=== PATIENT | male | born 1995 | race Caucasian/White ===

== ENCOUNTER 2019-10-28 10:18 | Emergency (ER) | payer SELFPAY ==
[~2019-10-28] VITALS: Ht 185.4 cm; Wt 108.0 kg
[~2019-10-28 10:18] MED LIST: CYCL-1 PO; NAPR-1154 PO; [UNRECOGNIZED DRUG - CODE] NAS
[2019-10-28] MEDS ORDERED: ketorolac tromethamine 15mg/ml inj. IM ONE (11:20)
[2019-10-28] MEDS ORDERED: CYCL-1 PO (11:32)
[2019-10-28 12:02] VITALS: BP 123/85
== END 2019-10-28 12:03 | disposition home or self-care (01) ==
LOC: ER 10:18
DX: M54.5 Low back pain (principal); G89.29 Other chronic pain; J45.909 Unspecified asthma, uncomplicated; F12.90 Cannabis use, unspecified, uncomplicated; Z79.899 Other long term (current) drug therapy
CPT/HCPCS: 96372; 99283; J1885

== ENCOUNTER 2022-07-15 00:17 | Emergency (ER) | payer OTHER ==
[~2022-07-15] VITALS: Ht 188 cm; Wt 86.2 kg
[2022-07-15 00:52] VITALS: BP 139/81
[2022-07-15] MEDS ORDERED: ACYC-128 PO (01:24)
== END 2022-07-15 01:38 | disposition home or self-care (01) ==
LOC: ER 00:18
DX: B00.9 Herpesviral infection, unspecified (principal); J45.909 Unspecified asthma, uncomplicated; F12.10 Cannabis abuse, uncomplicated; Z79.899 Other long term (current) drug therapy
CPT/HCPCS: 36415; 87491; 99283

== ENCOUNTER 2024-10-16 17:51 | Emergency (ER) | payer BC, OTHER ==
[~2024-10-16] VITALS: Ht 185.4 cm; Wt 100.9 kg
[2024-10-16 17:54] VITALS: BP 131/90; PULSE 78; RESP 18; TEMP 97.9; O2SAT 100
[2024-10-16 18:17] LABS: LEUKOCYTE ESTERASE ,URINE NEGATIVE (Neg); NITRITES, URINE NEGATIVE (Neg); OCCULT BLOOD,URINE MODERATE (Neg)
[2024-10-16 18:35] LABS: UA COLLECTION TYPE CLN CATCH MIDSTREAM
[2024-10-16 18:36] LABS: AMORPHOUS PHOSPHATES 4+; SQUAMOUS EPITHELIAL CELL,UR FEW /LPF (FEW)
[2024-10-16 18:48] LABS: MEAN PLATELET VOLUME 8.9 FL (7.4-10.4); RED CELL DISTRIBUTION WIDTH 13.0 % (11.5-14.5)
--- NOTE | 2024-10-16 19:09 | RADIOLOGY REPORT ---
ULTRASOUND SCROTUM CLINICAL INDICATION: Right Testicle Pain TECHNIQUE: High resolution scrotal ultrasound was performed with a linear transducer with duplex dopp ler and tour sales representative images acquired. Color Doppler with spectral analysis was performed/attempted of the testes. COMPARISON: None FINDINGS: Right testicle: Normal in size, measuring 5.2 x 3.2 x 4.7 cm. The testicular parenchyma is homogeneou s. No testicular mass. Normal intratesticular blood flow. The right epididymis appears normal. Small right hydrocele. Left testicle: Normal in size, measuring 4.5 x 2.6 x 5.1 cm. The testicular parenchyma is homogeneous . No testicular mass. Normal intratesticular blood flow. The left epididymis appears normal. IMPRESSION: 1. No evidence of testicular torsion. 2. Small right hydrocele.
[2024-10-16 19:10] LABS: TOTAL CARBON DIOXIDE 27.7 MMOL/L (24-32)
[2024-10-16 19:34] LABS: CREATININE 1.11 MG/DL (0.60-1.10); eCRCL 111 ML/MIN; eGFR 78 ML/MIN
--- NOTE | 2024-10-16 19:59 | Physician Documentation ---
History of Present Illness ~ Chief Complaint: Testicular Pain Stated Complaint: GROIN PAIN Time Seen by MD: 18:50 Primary Medical Doctor: none HPI This is a 29-year-old male who presents with right testicular pain radiating to lower abdomen and right lower back, reports that he had trauma to the testicle one-week prior received an ultrasound of the testicle and was told he had a contusion to the testicle, patient reports that today the pain became worse. Patient additionally reports a feeling of abdominal discomfort that he describes as it feels like I have diarrhea but can not poop patient additionally reports pain after urination which she describes as similar to when he had a kidney stone. Medication Reconciliation Allergies: Coded Allergies: No Known Allergies (Unverified , 10/16/24) Scheduled Cyclobenzaprine* (Cyclobenzaprine*), 1 TAB PO Q8H Naproxen (Naprosyn), 1 TAB PO Q12H Tamsulosin Hcl* (Flomax*), 1 CAP PO DAILY Scheduled PRN Cyclobenzaprine* (Cyclobenzaprine*), 1 TAB PO TID PRN for pain [Neti-Pot], 1 EA OSVALDO BID PRN for nasal congestion Past Medical History Past Medical History: Asthma Past Surgical History: no surgical history Alcohol Use: None Drug Use: marijuana Occupation: employed Review of Systems ROS As stated above in the HPI, otherwise all systems are reviewed and negative. Physical Exam Vital Signs: Temperature: 97.9, Source: Temporal, Heart Rate: 78, Respiratory Rate: 18, BP: 131/90, Pulse Oximetry: 100, Weight: 100.910 Oxygen Flow Rate: 0 Physical Exam VITALS: Reviewed and as above. GENERAL: Alert, nontoxic appearing, no apparent distress. RESPIRATORY: No increased work of breathing, no respiratory distress, speaking in full clear sentences, clear lung sounds in all mallory CV: Regular rate and rhythm no murmur BACK: No CVA tenderness GI: Lower abdomen tender to palpation, nondistended, soft, no rebound, no guarding : Right testicle tender to palpation, no scrotal ecchymosis or erythema Progress Results/Orders Results/Orders Orders - KRISTI DE LOS SANTOS Us Testic/W/Duplex (10/16/24 18:23) Completed Orders - KRISTI DE LOS SANTOS Us Testic/W/Duplex (10/16/24 18:23) Vital Signs 10/16/24 17:54 Temp 97.9 Pulse 78 Resp 18 B/P (MAP) 131/90 Pulse Ox 100 O2 Flow Rate 0 Laboratory Tests Test 10/16/24 17:58 10/16/24 18:24 Urine Specimen Description Cln catch midstream Urine Color Yellow Urine Clarity Cloudy Urine pH 7.0 Urine Specific Lipan 1.020 Urine Protein Negative Urine Glucose (UA) Negative Urine Ketones Negative Urine Occult Blood Moderate H Urine Nitrite Negative Urine Bilirubin Negative Urine Urobilinogen 0.2 Urine Leukocyte Esterase Negative Urine RBC 20-50 Urine WBC 0-4 Urine Squamous Epithelial Cells Few Urine Amorphous Phosphates 4+ Urine Bacteria 2+ Urine Culture Indicated Not ind Volume Urine Centrifuged 10 ml Urine Comment White Blood Count 9.9 Red Blood Count 5.08 Hemoglobin 15.3 Hematocrit 44.5 Mean Corpuscular Volume 87.7 Mean Corpuscular Hemoglobin 30.1 Mean Corpuscular Hemoglobin Concent 34.3 Red Cell Distribution Width 13.0 Platelet Count 226 Mean Platelet Volume 8.9 Neutrophils (%) (Auto) 53.5 Lymphocytes (%) (Auto) 34.6 Monocytes (%) (Auto) 6.8 Eosinophils (%) (Auto) 4.5 Basophils (%) (Auto) 0.6 Neutrophils # (Auto) 5.3 Lymphocytes # (Auto) 3.4 Monocytes # (Auto) 0.7 Eosinophils # (Auto) 0.4 Basophils # (Auto) 0.1 CBC Comment Sodium Level 140 Potassium Level 3.5 Chloride Level 104 Carbon Dioxide Level 27.7 Anion Gap 8 Blood Urea Nitrogen 12 Creatinine 1.11 H Estimated GFR/1.73 m2 78 BUN/Creatinine Ratio 10.8 Glucose Level 89 Calcium Level 8.9 Total Bilirubin 0.5 Aspartate Amino Transf (AST/SGOT) 22 Alanine Aminotransferase (ALT/SGPT) 32 Alkaline Phosphatase 60 Total Protein 7.7 Albumin 4.1 Globulin 3.6 Albumin/Globulin Ratio 1.1 Lipase 55 Chemistry Comments EKG/XRAY/CT/US/VASC/MRI Ultrasound : Impression Exam: US TESTIC/W/DUPLEX ULTRASOUND SCROTUM CLINICAL INDICATION: Right Testicle Pain TECHNIQUE: High resolution scrotal ultrasound was performed with a linear transducer with duplex doppler and traffic workforce representative images acquired. Color Doppler with spectral analysis was performed/attempted of the testes. COMPARISON: None FINDINGS: Right testicle: Normal in size, measuring 5.2 x 3.2 x 4.7 cm. The testicular parenchyma is homogeneous. No testicular mass. Normal intratesticular blood fl ow. The right epididymis appears normal. Small right hydrocele. Left testicle: Normal in size, measuring 4.5 x 2.6 x 5.1 cm. The testicular parenchyma is homogeneous. No testicular mass. Normal intratesticular blood flow. The left epididymis appears normal. IMPRESSION: 1. No evidence of testicular torsion. 2. Small right hydrocele. Electronically Signed by:SHERLY GOODRICH MD Date & Time: 10/16/241906 Dictated by: SHERLY GOODRICH MD Dictation date and time: 10/16/241906 Medical Decision Making Findings This 29 year old male presented with right testicular pain with radiation to lower abdomen and low back. Physical exam significant for testicular tenderness without swelling or ecchymosis. Ultrasound did not demonstrate evidence of testicular torsion though there was evidence of a hydrocele which is most likely the source of patients testicular pain. Physical exam was otherwise benign without abdominal pain or other findings. There was evidence of hematuria on UA though no evidence of urinary tract infection, given patient's report of symptoms similar to previous kidney stone this likely evidence of patient passing kidney stone, with shared decision making imaging will be deferred and patient discharged on tamsilosin to follow up with PCP. Patient declines testing and treatment for possible STI as he reports in a monogamous relationship. Patient is otherwise well appearing and is appropriate for outpatient follow up. Patient provided home care instructions, follow up instructions, and return to care precautions. Urinary Diff Dx:Considerations: Include: Appendicitis, Bowel obstruction, Musculoskeletal pain, Pyelonephritis, Urolithiasis, Urinary Obstruction, Urethritis, Urinary retention, UTI Genital Diff Dx:Considerations: Include: Epididymitis, Foreign body, Hydrocele, Inguinal hernia, Prostatitis, Testicular torsion Departure Time of Disposition: 20:41 Disposition: 01 HOME / SELF CARE / HOMELESS Impression: Primary Impression: Pain in testicle Qualified Codes: N50.811 - Right testicular pain Additional Impression: Hematuria Qualified Codes: R31.9 - Hematuria, unspecified Condition: Improved Discharge Instructions: Hydrocele, Adult Additional Instructions: Your ultrasound did not show any emergency condition with your testicle currently, there was a finding of what is known as a hydrocele which is a collection of fluid behind your testicle, follow up with the primary care provider about this. There was a small amount of blood found in your urine in his we discussed this is likely a sign that you are passing a kidney stone. You may use ibuprofen and or Tylenol as needed for pain. Avoid further testicular trauma. Please take the prescribed Flomax to help you pass the kidney stone. If your symptoms worsen please return to the emergency department as you would likely need further imaging of your abdomen to rule out more serious causes of your abdominal pain. Please follow up with your primary care provider in the next few days. Please return to the emergency department for any new or worsening concerning symptoms. Referrals: NO PRIMARY CARE PROVIDER (PCP) Prescriptions Tamsulosin Hcl* (Flomax*) 0.4 Mg Cap.sr.24h 1 CAP PO DAILY for 30 Days, #30 CAP Prov: KRISTI DE LOS SANTOS 10/16/24 Education Educated: Patient Educated regarding: diagnosis, treatment, prognosis, need for follow up Signature Scribe Signature: No Scribe Attestation: The note accurately reflects work and decisions made by me.RAMOS Angulo 10/19/24 12:32 KRISTI DE LOS SANTOS Oct 16, 2024 19:59
[2024-10-16] MEDS ORDERED: TAMS-55 PO (20:44)
== END 2024-10-16 20:53 | disposition home or self-care (01) ==
LOC: ER 17:51
DX: N50.811 Right testicular pain (principal); R31.9 Hematuria, unspecified; J45.909 Unspecified asthma, uncomplicated; F12.90 Cannabis use, unspecified, uncomplicated; Z87.442 Personal history of urinary calculi
CPT/HCPCS: 36415; 76870; 80053; 81001; 83690; 85025; 93976; 99284